=== PATIENT | female | born 2000 | race Caucasian/White ===

== ENCOUNTER → 2022-03-30 | Outpatient (CLI) | payer MEDICAID, SELFPAY ==
[2022-03-30 13:42] LABS: T4 Free Direct 1.03 ng/dL (0.76-1.46); Thyroid Stim Hormone (TSH) 1.74 uIU/mL (0.358-3.74)
[2022-04-01 19:07] LABS: Dilute Prothrombin Time (dPT) 37.4 sec (0.0-47.6); Dilute Russell Viper Venom 39.5 sec (0.0-47.0); dPT Confirm Ratio 1.04 Ratio (0.00-1.34)
[2022-04-01 22:20] LABS: Anti-Cardiolipin Ab, IgA, Qn < 9 APL U/mL (0-11); Anti-Cardiolipin Ab, IgG, Qn < 9 GPL U/mL (0-14); Anti-Cardiolipin Ab, IgM, Qn 14 MPL U/mL (0-12); Beta-2-Glycoprotein I IgA <9 (0-25); Beta-2-Glycoprotein I IgG <9 (0-20); Beta-2-Glycoprotein I IgM <9 (0-32); Interpretation Comment: (.); PTT-LA 38.9 sec (0.0-43.5)
== END | disposition home or self-care (01) ==
PROVIDERS: PCP Physician Assistant; Referring Provider Obstetrics & Gynecology; Visit Provider Obstetrics & Gynecology
DX: N96 Recurrent pregnancy loss (principal)
CPT/HCPCS: 36415; 84439; 84443; 86146; 86147

== ENCOUNTER → 2022-04-07 | Outpatient (CLI) | payer MEDICAID, SELFPAY ==
--- NOTE | 2022-04-07 16:10 | US_ITS ---
STUDY: ULTRASOUND OF THE FEMALE PELVIS - COMPLETE REASON FOR EXAM: Female, 21 years old. History of recurrent miscarriages. LMP: Unknown. TECHNIQUE: Transabdominal and Transvaginal TECHNICAL QUALITY: Adequate. COMPARISON: None. FINDINGS: The uterus is anteverted and is in a midline position. The uterus measures 8.4 x 4.7 x 3.5 cm. There is a Nabothian cyst of the cervix. The endometrium measures 7 mm in thickness, and is hyperechoic. There is no demonstrated endometrial mass. There is no demonstrated myometrial mass. I.U.D. - The patient does not have an I.U.D. The right ovary is visualized. The right ovary measures 3.9 x 2.4 x 2.3 cm. There is a 2.0 x 1.7 cm dominant follicle versus cyst. There is no visualized right adnexal mass or complex lesion. There is normal arterial and normal venous vascularity. The left ovary is visualized. The left ovary measures 2.3 x 1.9 x 1.5 cm. There are multiple follicles of the left ovary without a dominant cyst. There is no visualized left adnexal mass or complex lesion. There is normal arterial and normal venous vascularity. There is minimal fluid in the cul-de-sac. The pre void volume of the bladder was 810 ml. The urinary bladder is grossly normal. Polycystic ovary disease: No. US/Pelvic (Non ) IMPRESSION: Dominant follicle versus cyst right ovary. The study is otherwise unremarkable. Electronically Signed: Chino Elizabeth DO at 19:06 EST ,
== END | disposition home or self-care (01) ==
LOC: US 16:04
PROVIDERS: PCP Physician Assistant; Visit Provider Obstetrics & Gynecology
DX: N96 Recurrent pregnancy loss (principal)
CPT/HCPCS: 76830; 76856

== ENCOUNTER 2022-06-29 14:32 | Outpatient (CLI) | payer MEDICAID, SELFPAY ==
[2022-07-04 17:07] LABS: Anti-Cardiolipin Ab, IgA, Qn < 9 APL U/mL (0-11); Anti-Cardiolipin Ab, IgG, Qn < 9 GPL U/mL (0-14); Anti-Cardiolipin Ab, IgM, Qn 12 MPL U/mL (0-12); Beta-2-Glycoprotein I IgA <9 (0-25); Beta-2-Glycoprotein I IgG <9 (0-20); Beta-2-Glycoprotein I IgM <9 (0-32); Dilute Prothrombin Time (dPT) 35.9 sec (0.0-47.6); Dilute Russell Viper Venom 36.9 sec (0.0-47.0); Interpretation Comment: (.); PTT-LA 36.5 sec (0.0-43.5); Thrombin Time 16.8 sec (0.0-23.0); dPT Confirm Ratio 0.94 Ratio (0.00-1.34)
== END 2022-06-29 23:59 | disposition home or self-care (01) ==
LOC: LAB 14:34
PROVIDERS: PCP Physician Assistant; Referring Provider Obstetrics & Gynecology; Visit Provider Obstetrics & Gynecology
DX: N96 Recurrent pregnancy loss (principal)
CPT/HCPCS: 36415; 86146; 86147

== ENCOUNTER → 2023-04-09 | Outpatient (CLI) | payer MEDICAID, SELFPAY ==
[2023-04-12 07:08] LABS: Chlamydia By Nucleic Acid AMP Negative (Negative); Gonococcus By Nucleic Acid AMP Negative (Negative)
[2023-04-13 18:35] LABS: HPV Reflexed? NOT INDICATED
== END | disposition home or self-care (01) ==
LOC: LABSPEC 14:44
PROVIDERS: PCP Physician Assistant; Referring Provider Nurse Practitioner Women's Health; Visit Provider Nurse Practitioner Women's Health
DX: Z11.3 Encounter for screening for infections with a predominantly sexual mode of transmission (principal); Z12.4 Encounter for screening for malignant neoplasm of cervix
CPT/HCPCS: 87491; 87591; 88175; G0145

== ENCOUNTER → 2023-06-20 | Outpatient (CLI) | payer MEDICAID, SELFPAY ==
[2023-06-20 16:22] LABS: Absolute Lymphocyte Count 1.66 X10^3/uL (0.83-4.51); Absolute Neutrophil Count 3.9 X10^3/uL (2.0-7.7); Basophil# 0.03 X10^3/uL; Basophil% 0.5 % (0-1); Eosinophil# 0.01 X10^3/uL; Eosinophils% 0.2 % (0-5); Hematocrit 36.1 % (37-47); Hemoglobin 11.3 g/dL (12.0-15.0); Lymphocyte # 1.66 X10^3/ul (0.83-4.51); Lymphocyte % 27.2 % (19-41); Mean Corp Hgb Conc 31.3 g/dL (32-36); Mean Corpuscular Hgb 25.6 pg (27.0-32.0); Mean Corpuscular Volume 81.7 fL (81-99); Mean Platelet Vol. 9.9 fl (6.2-12.0); Monocyte# 0.54 X10^3/uL; Monocyte% 8.8 % (0-10); NRBC Flagged by Analyzer 0 % (0-5); Neutrophil # 3.86 X10^3/uL (2.7-7.7); Neutrophil % 63.1 % (47-70); Platelet Count 313 K/mm3 (150-450); RBC Distribution Width CV 13.4 % (11.6-14.6); RBC Distribution Width SD 39.9 fl (35.1-43.9); Red Blood Count 4.42 M/mm3 (4.2-5.4); White Blood Count 6.1 K/mm3 (4.4-11.0)
[2023-06-20 16:53] LABS: Prolactin 10.6 ng/mL; T4 Free Direct 0.71 ng/dL (0.76-1.46); Thyroid Stim Hormone (TSH) 2.17 uIU/mL (0.358-3.74)
[2023-06-20 17:08] LABS: Vitamin D,25 Hydroxy 31.8 ng/mL
[2023-06-22 04:07] LABS: Thyroid Peroxidase AB 13 IU/mL (0-34)
== END | disposition home or self-care (01) ==
LOC: LAB 16:02
PROVIDERS: PCP Physician Assistant; Referring Provider Nurse Practitioner Women's Health; Visit Provider Nurse Practitioner Women's Health
DX: Z13.21 Encounter for screening for nutritional disorder (principal); N93.9 Abnormal uterine and vaginal bleeding, unspecified; Z13.29 Encounter for screening for other suspected endocrine disorder
CPT/HCPCS: 36415; 82306; 84146; 84439; 84443; 85025; 86376

== ENCOUNTER → 2023-07-11 | Outpatient (CLI) | payer MEDICAID, SELFPAY ==
[2023-07-11 18:58] LABS: Estradiol 42.4 pg/mL; Follicle Stimulating Hormone 4.5 mIU/mL; Free T4 0.79 ng/dL (0.76-1.46); Thyroid Stim Hormone (TSH) 2.43 uIU/mL (0.358-3.74)
[2023-07-13 08:12] LABS: Thyroid Peroxidase AB 14 IU/mL (0-34)
== END | disposition home or self-care (01) ==
LOC: LAB 16:57
PROVIDERS: PCP Physician Assistant; Referring Provider Nurse Practitioner Women's Health; Visit Provider Nurse Practitioner Women's Health
DX: N93.9 Abnormal uterine and vaginal bleeding, unspecified (principal); Z13.29 Encounter for screening for other suspected endocrine disorder
CPT/HCPCS: 36415; 82670; 83001; 84439; 84443; 86376

== ENCOUNTER → 2023-08-23 | Outpatient (CLI) | payer MEDICAID, SELFPAY ==
--- NOTE | 2023-08-23 08:08 | US_ITS ---
STUDY: ULTRASOUND TRANSVAGINAL CLINICAL: Female, 23 years old. abnormal uterine bleeding TECHNIQUE: Transvaginal COMPARISON: 04/07/2022 FINDINGS: Normal uterine size measuring 7.9 x 4.8 x 3.5 cm in maximal craniocaudal dimension. There are no myometrial masses. Normal endometrial thickness measuring 4 mm. There is a 3 mm round anechoic mass within the anterior aspect of the endometrium consistent with a cyst.. Normal uterine cervix. Normal right ovary, measuring 2.6 x 1.6 x 1.5 cm. There are multiple follicles without a dominant cyst. Normal left ovary, measuring 3.0 x 2.0 x 1.8 cm. There are multiple follicles without a dominant cyst. There is no free fluid in the pelvis. Polycystic ovary disease: No. US/Transvaginal Non- IMPRESSION: Suspect tiny endometrial cyst. Hysteroscopy may be useful. Electronically Signed: Pascual Orantes MD at 11:18 EDT ,
== END | disposition home or self-care (01) ==
LOC: OPUS 08:07
PROVIDERS: PCP Physician Assistant; Referring Provider Advanced Practice Midwife; Visit Provider Advanced Practice Midwife
DX: N93.9 Abnormal uterine and vaginal bleeding, unspecified (principal)
CPT/HCPCS: 76830

== ENCOUNTER 2024-12-17 17:01 | Emergency (ER) | payer MEDICAID, SELFPAY ==
[2024-12-17 17:02] VITALS: BP 140/80; PULSE 87; RESP 20; TEMP 36.1; O2SAT 98; BMI 29.5
--- NOTE | 2024-12-17 17:22 | US_ITS ---
PROCEDURE: US/Transvaginal w/Preg US
--- NOTE | 2024-12-17 17:26 | EX.ED.GENINJ ---
HPI History of Present Illness Chief Complaint: Fall Informant: patient Narrative Narrative: 24-year-old female presenting to the emergency room out of concern for miscarriage. Patient states that she is G5 at 13 weeks. She has had 4 prior miscarriages 1 was twins. Patient states that today she fell coming out of her home as they were rebuilding her front porch. She landed on her lower abdomen. She has had discomfort there. She does note some nausea vomiting but also has had a migraine for several days and is currently on Keflex for UTI. States she had a formal ultrasound at [place] at 7 weeks for this . She went to see her [facility] in [place] today and they were unable to find a dopplerable heart rate. Patient states that she was told they will wait and see if she is having any significant bleeding and she decided to no longer go to that [facility]. Because of her symptomology she came to [place] to be seen. She denies any rectal bleeding. She denies any abdominal wall ecchymosis. No hematuria. PFSH [facility] Home Medications ?Medication ?Instructions ?Recorded ?Last Taken ?Type desvenlafaxine succinate 50 mg 50 mg PO QDAY 03/06/24 Unknown History tablet,extended release 24 hr (Pristiq) dextroamphetamine-amphetamine ER 15 mg PO QDAY 03/06/24 Unknown History 15 mg 24hr capsule,extend release (Adderall XR) hydroxyzine HCl 25 mg tablet 25 mg PO BID PRN 03/06/24 Unknown History Allergy/AdvReac Type Severity Reaction Status Date / Time fentanyl Allergy Intermediate Hives Verified 12/17/24 17:02 Opioids - Morphine Analogues Allergy Intermediate Hives Verified 12/17/24 17:02 Penicillins Allergy Diarrhea Verified 12/17/24 17:02 Family History Grandfather Heart disease Grandmother Breast cancer Grandmother Breast cancer Mother Thyroid disorder Depressive disorder Father Depressive disorder Hypercholesterolemia Surgical History Hx of tympanostomy tubes Hx of dilation and curettage Hx of colonoscopy Social History adopted: No current occupational status: employed current occupation: [employer] pets and animals: Yes pets and animals: dog(s) sexually active: Yes Smoking Status: Never smoker alcohol intake: current alcohol intake frequency: holidays/special occasions only substance use type: does not use caffeine: Yes (1 soda a day ) seatbelt use: always do you feel safe at home: Yes additional social history: s/o eduardo DAVIS ROS ED Constitutional Constitutional ED: Denies chills, fever(s) or weight loss Eyes Eyes: Denies change in vision or diplopia ENT ENT ED: Denies ear pain, rhinorrhea or sore throat Cardiovascular Cardiovascular: Denies chest pain, orthopnea, palpitations or racing heartbeat Respiratory/Chest Respiratory/Chest: Denies cough, dyspnea or orthopnea Gastrointestinal Gastrointestinal: Reports abdominal pain, nausea and vomiting; Denies diarrhea Genitourinary Genitourinary ED: Reports hematuria; Denies dysuria or urinary frequency Musculoskeletal Musculoskeletal: Denies arthralgias, back pain, myalgias or neck pain Integumentary Denies abscess or rash Neurologic Neurologic: Denies headache(s), paresthesias or weakness Psychiatric Psychiatric: Denies anxiety, depression, suicidal ideation or suicidal thoughts Endocrine Endocrinology: Denies polydipsia, polyphagia or polyuria Allergic/Immunologic Allergic/Immunologic ED: Denies mouth swelling, tongue swelling or urticaria EXAM Physical Exam Const Vital Signs: 12/17/24 17:02 12/17/24 17:25 12/17/24 18:54 Temperature 97 F L Temperature Source Temporal Pulse Rate 87 75 Respiratory Rate 20 H Respiratory Effort Normal Non-Labored Respiratory Depth Normal Respiratory Pattern Normal Blood Pressure 140/80 H 121/66 H Blood Pressure Mean 100 84 Pulse Ox 98 Oxygen Delivery Method Room Air 12/17/24 20:15 Temperature 98.2 F Temperature Source Pulse Rate 75 Respiratory Rate 16 Respiratory Effort Respiratory Depth Respiratory Pattern Blood Pressure 120/65 Blood Pressure Mean 83 Pulse Ox 100 Oxygen Delivery Method Positive well nourished and well developed General Appearance ED: well developed HEENT Reports normocephalic, head/scalp atraumatic and moist mucous membranes Eyes PERRL and EOMs intact bilaterally Neck no lymphadenopathy, supple and no JVD Resp normal respiratory effort and clear to auscultation bilaterally Cardio regular rate, regular rhythm and no murmurs GI GI Narrative: Mild tenderness to palpation over the lower abdominal wall. And there is no ecchymosis is seen. The abdomen is soft. Normal active bowel sounds. Auscultation: normoactive bowel sounds Palpation: soft and tender suprapubic; Negative for guarding or rebound tenderness present Back/Spine no CVA tenderness and normal ROM Extremity normal to inspection General Extremety ED: Negative for edema General Extremity: Negative for edema Neuro oriented x3 and CN's II-XII intact bilaterally Sensorium / Orientation: alert Motor Exam: strength 5/5 throughout Psych Mood & Affect: anxious and tearful; Negative for depressed Skin no rashes or lesions noted and no wounds MDM MDM MDM Narrative Medical decision making narrative: Differential diagnosis includes threatened miscarriage and inevitable miscarriage placental abruption demise bladder contusion organ rupture intra-abdominal hemorrhage Using bedside ultrasound I do not appreciate any free fluid in the right or left upper abdomen. I do not see any fluid around the bladder. There appears to be a single live intrauterine with good motion with a heart rate of 164. A formal pelvic ultrasound will be obtained as she has no previous care for this here. This was obtained and read by radiology reviewed by myself. Please see greatest read for full details but single live intrauterine with heart rate obtained. She is a positive. Urinalysis with no overt infection and again she is already on Keflex. I believe the patient can be discharged home. Would recommend Tylenol for pain rest. She will be given local [facility] if she wishes to transfer care. Patient is comfortable with this plan History & Record Review Discussion w/independent historian: Patient Lab Data Attestation: I reviewed the patient's lab results. Labs: Laboratory Results - last 24 hr 12/17/24 12/17/24 17:40 18:05 HCG, Quant 41282 H Urine Color Yellow Urine Clarity Cloudy Urine pH 6.0 Ur Specific [place] 1.030 Urine Protein 30 H Urine Glucose (UA) Normal Urine Ketones Negative Urine Occult Blood Negative Urine Nitrite Negative Urine Bilirubin Negative Urine Urobilinogen Normal Ur Leukocyte Esterase Negative Urine RBC 0-5 SEEN Urine WBC 0-5 SEEN Ur Squamous Epith Cells 0-5 SEEN Amorphous Sediment 1+ Urine Bacteria 1+ Urine Mucus 0 SEEN Blood Type A POSITIVE Radiography Diagnostic Testing: Clinical Impression(s) from Imaging Studies Obstetrics Ultrasound 12/17/24 17:22 IMPRESSION: Single live intrauterine . Reading Location: [facility] Discharge Plan Triage Chief Complaint: Fall ED Provider: Chinmay Myers Dx/Rx/DC Orders Clinical Impression: Second trimester , Fall, Abdominal wall contusion Instructions: ED Soft Tissue Contusion, Miscarriage Threatened Prescriptions: No Action hydroxyzine HCl 25 mg tablet 25 mg PO BID PRN dextroamphetamine-amphetamine [Adderall XR] 15 mg capsule,extended release 24hr 15 mg PO QDAY desvenlafaxine succinate [Pristiq] 50 mg tablet extended release 24 hr 50 mg PO QDAY Primary Care Provider: Matt Rowland Referrals: [facility] [Other] Matt Rowland, PA-C [Primary Care Provider, Medical] Lauren Nicole MD [Med Staff - Active Staff, Obstetrics-Gynecology (OBGYN)] Referral Note: for local OB care Print Language: Welsh Disposition Disposition: Home, Self Care
[2024-12-17 17:48] LABS: Mucous, Urine 0 SEEN /hpf (<or=2+)
[2024-12-17 18:39] LABS: Color, Urine Yellow (Yellow); Glucose, Dipstick Normal (Normal); Ketone-Dipstick Negative (Negative); Leukocyte Esterase-Dipstick Negative /ul (Negative); Nitrite-Dipstick Negative (Negative); Occult Blood-Urine Negative /ul (Negative); Protein-Dipstick 30 mg/dl (Negative); Specific Gravity, Urine 1.030 (1.002-1.030); Urine Bilirubin Dipstick Negative (Negative)
[2024-12-17 18:54] VITALS: BP 121/66; PULSE 75
[2024-12-17 19:13] LABS: hCG Titer Quant., Serum 25710 mIU/mL (<9 non-preg)
[2024-12-17 20:07] LABS: Squamous Epithelial Cells - UA 0-5 SEEN /hpf (5-10)
[2024-12-17 20:08] LABS: Red Blood Cells-Urine 0-5 SEEN /hpf (0-5)
[2024-12-17 20:15] VITALS: BP 120/65; PULSE 75; RESP 16; TEMP 36.8; O2SAT 100
== END 2024-12-17 20:24 | disposition home or self-care (01) ==
PROVIDERS: Emergency Provider Emergency Medicine; PCP Physician Assistant; Visit Provider Emergency Medicine
DX: O9A.211 Injury, poisoning and certain other consequences of external causes complicating pregnancy, first trimester (principal); S30.11XA Contusion of abdominal wall, initial encounter; W19.XXXA Unspecified fall, initial encounter; Y92.008 Other place in unspecified non-institutional (private) residence as the place of occurrence of the external cause; Z3A.13 13 weeks gestation of pregnancy; O99.351 Diseases of the nervous system complicating pregnancy, first trimester; G43.909 Migraine, unspecified, not intractable, without status migrainosus
CPT/HCPCS: 76817; 81001; 84702; 86900; 86901; 99282